=== PATIENT | male | born 1945 | race Caucasian/White ===

== ENCOUNTER 2017-06-15 10:07 | Day surgery (SDC) | payer MEDICARE, OTHER ==
[2017-06-15] MEDS ORDERED: LACTATED RINGERS 1,000 ML IV ONE (10:30)
[2017-06-15] MEDS ORDERED: MIDAZOLAM 2 MG/2 ML VIAL IVP ONE (11:42)
[2017-06-15] MEDS ORDERED: fentaNYL 100 MCG/2 ML VIAL IVP ONE (11:42)
[2017-06-15] MEDS ORDERED: GLUCAGON 1 MG/ML VIAL IM ONE (11:42)
[2017-06-15 12:52] VITALS: BP 129/82
== END 2017-06-15 10:08 | disposition home or self-care (01) ==
LOC: SDS 10:07
PROVIDERS: ATTEND Surgery
PROC: 0DBK8ZX Excision of Ascending Colon, Via Natural or Artificial Opening Endoscopic, Diagnostic (ICD-10-PCS; 2017-06-15)
PROC: 0DBN8ZX Excision of Sigmoid Colon, Via Natural or Artificial Opening Endoscopic, Diagnostic (ICD-10-PCS; principal; 2017-06-15 11:15)
DX: Z12.11 Encounter for screening for malignant neoplasm of colon (principal); D12.2 Benign neoplasm of ascending colon; D12.0 Benign neoplasm of cecum; D12.5 Benign neoplasm of sigmoid colon; Z79.82 Long term (current) use of aspirin; Z87.891 Personal history of nicotine dependence
CPT/HCPCS: 45380; 45385; J7120

== ENCOUNTER 2020-09-13 10:47 | Day surgery (SDC) | payer MEDICARE ==
[2020-09-13] MEDS ORDERED: LACTATED RINGERS 1,000 ML IV ONE ×2 (11:02→12:32)
[2020-09-13] MEDS ORDERED: MIDAZOLAM 2 MG/2 ML VIAL ONE ×2 (11:43→11:45)
[2020-09-13] MEDS ORDERED: fentaNYL 250 MCG/5 ML VIAL ONE (11:43)
[2020-09-13] MEDS ORDERED: SIMETHICONE 40 MG/0.6 ML 30 ML BOTTLE PO ONE (12:04)
[2020-09-13 12:46] VITALS: BP 112/67
== END 2020-09-13 10:48 | disposition home or self-care (01) ==
LOC: SDS 10:47
PROVIDERS: ATTEND Surgery
PROC: 0DBP8ZZ Excision of Rectum, Via Natural or Artificial Opening Endoscopic (ICD-10-PCS; principal; 2020-09-13 12:00)
DX: Z12.11 Encounter for screening for malignant neoplasm of colon (principal); D12.8 Benign neoplasm of rectum; Z87.891 Personal history of nicotine dependence
CPT/HCPCS: 45380; A9270; J3010; J7120

== ENCOUNTER 2021-03-19 08:00 | Outpatient (CLI) | payer MEDICARE | END 2021-03-19 23:59 | disposition home or self-care (01) | LOC: LAB.N 08:00 | PROVIDERS: ATTEND Physician Assistant Medical | DX: R33.8 Other retention of urine (principal) | CPT/HCPCS: 87086 ==

== ENCOUNTER 2022-01-13 07:17 | Outpatient (CLI) | payer MEDICARE ==
[2022-01-13 11:49] LABS: BASOPHILS % (AUTO) 0.1 %; HCT - HEMATOCRIT 44.2 % (42.0-52.0); HGB - HEMOGLOBIN 13.9 g/dL (14.0-18.0); LYMPHOCYTES % (AUTO) 94.5 %; MEAN CORPUSCULAR HEMOGLOBIN 30.3 pg (27.0-31.0); MEAN CORPUSCULAR HGB CONC 31.4 g/dL (32.0-36.0); MEAN CORPUSCULAR VOLUME 96.3 fL (80.0-94.0); MEAN PLATELET VOLUME 11.3 fL (7.4-11.4); MONOCYTES % (AUTO) 1.6 %; NEUTROPHILS % (AUTO) 3.7 %; PLT - PLATELET COUNT 120 10^3/uL (130-450); RED BLOOD COUNT 4.59 10^6/uL (4.70-6.10); RED CELL DISTRIBUTION WIDTH 14.4 % (12.0-15.0)
[2022-01-13 12:19] LABS: WHITE BLOOD COUNT 85.1 x10^3/uL (4.8-10.8)
[2022-01-13 12:20] LABS: ABNORMAL LYMPHS % (MANUAL) 0 %; BAND NEUTROPHILS % (MANUAL) 0 %
[2022-01-13 12:21] LABS: SLIDE SENT FOR PATH REVIEW? Indicated
[2022-01-13 12:30] LABS: LYMPHOCYTES # (MANUAL) 79.1 10^3/uL (1.5-3.5); LYMPHOCYTES % (MANUAL) 93 %; MONOCYTES # (MANUAL) 1.7 10^3/uL (0.0-1.0); NEUTROPHILS # (MANUAL) 2.6 10^3/uL (1.5-6.6)
[2022-01-13 12:32] LABS: DIFFERENTIAL COMMENT MANUAL DIFFERENTIAL; PLATELET ESTIMATE, MANUAL DECREASED (<130,000) (NORMAL); PLATELET MORPHOLOGY NORMAL APPEARANCE (NORMAL); RBC MORPHOLOGY (MULTIPLE) NORMAL APPEARANCE (NORMAL); WBC MORPHOLOGY (MULTIPLE) 2+ SMUDGE CELLS (NORMAL)
[2022-01-13 12:35] LABS: BLAST CELLS % (MANUAL) 2 %
[2022-01-13 12:48] LABS: ALBUMIN 4.3 g/dL (3.2-5.5); ALKALINE PHOSPHATASE 40 IU/L (42-121); ALT ALANINE AMINOTRANSFERASE 20 IU/L (10-60); AST ASPARTATE AMINOTRANSFERASE 23 IU/L (10-42); BILIRUBIN,TOTAL 0.7 mg/dL (0.2-1.0); BUN - BLOOD UREA NITROGEN 21 mg/dL (6-20); CALCIUM 9.2 mg/dL (8.5-10.3); CARBON DIOXIDE - CO2 30 mmol/L (21-32); CHLORIDE 102 mmol/L (101-111); CHOL/HDL RATIO 3.2 (<5.0); CHOLESTEROL 236 mg/dL; CREATININE 0.9 mg/dL (0.6-1.2); GFR - MDRD 82 (>89); GLUCOSE 87 mg/dL (70-100); HDL CHOLESTEROL 73 mg/dL; LDL CHOLESTEROL,CALCULATED 151 mg/dL; LDL/HDL RATIO 2.1 (<3.6); POTASSIUM 4.1 mmol/L (3.5-5.0); SODIUM 138 mmol/L (135-145); TOTAL PROTEIN 6.5 g/dL (6.7-8.2); TRIGLYCERIDES 58 mg/dL; VLDL CHOLESTEROL 12 mg/dL
[2022-01-13 12:59] LABS: THYROID STIMULATING HORMONE 2.06 uIU/mL (0.34-5.60)
== END 2022-01-13 07:18 | disposition home or self-care (01) ==
LOC: LAB.N 07:17
PROVIDERS: ATTEND Family Medicine
DX: L21.9 Seborrheic dermatitis, unspecified (principal); L57.0 Actinic keratosis; N52.9 Male erectile dysfunction, unspecified; Z12.5 Encounter for screening for malignant neoplasm of prostate
CPT/HCPCS: 36415; 80053; 80061; 84443; 85025; G0103; 83721; 84153

== ENCOUNTER 2023-01-21 10:10 | Day surgery (SDC) | payer MEDICARE ==
[~2023-01-21 10:10] MED LIST: BUPIVACAINE 0.25% PF 30 ML VIAL ONE; LIDOCAINE-MPF 1% 30 ML VIAL ONE; ceFAZolin 2 GM VIAL ONE
[2023-01-21] MEDS ORDERED: LACTATED RINGERS 1,000 ML IV ONE ×2 (10:37→13:30)
--- NOTE | 2023-01-21 10:58 | ANESTHESIA ---
Pre-Anesthesia VS, & Labs - Diagnosis right inguinal hernia - Procedure right inguinal hernia repair Height: 5 ft 10 in Weight (kg): 64.9 kg Body Mass Index: 20.5 BMI Classification: Normal - NPO >8 hours Home Medications and Allergies Alfuzosin HCl [Alfuzosin HCl ER] 10 mg PO ONCE 01/16/22 Allergies/Adverse Reactions: Allergies Allergy/AdvReac Type Severity Reaction Status Date / Time No Known Drug Allergies Allergy Verified 09/13/20 11:11 Anes History & Medical History - Anesthetic History Anesthesia Complications: reports: No previous complications - Medical History Cardiovascular: reports: None Pulmonary: reports: None Gastrointestinal: reports: None Urinary: reports: Benign prostate hypertrophy Musculoskeletal: reports: None Endocrine/Autoimmune: reports: None Skin: reports: None Smoking Status: Former smoker Psychosocial: reports: Alcohol (beer occassionally) - Surgical History General: reports: Colonoscopy Eyes Ears Nose Throat (EENT): reports: Tonsil/Adenoidectomy Orthopedic: reports: Spine surgery Exam General: Alert, Oriented x3 Dental: WNL Mouth Opening: Greater than 4 Fingerbreadths Neck Mobility: Normal Mallampati classification: II Thyromental Distance: greater than 6 cm Respiratory: Lungs clear Cardiovascular: Regular rate Plan Anesthesia Type: MAC Consent for Procedure(s) Verified and Reviewed: Yes Code Status: Attempt Resuscitation ASA classification: 2-Mild systemic disease Is this case an emergency?: No
[2023-01-21] MEDS ORDERED: fentaNYL 100 MCG/2 ML VIAL ONE (11:46)
[2023-01-21] MEDS ORDERED: PROPOFOL 500 MG/50 ML 500 MG/50 ML VIAL ONE (11:46)
[2023-01-21] MEDS ORDERED: BUPIVACAINE 0.25% PF 30 ML VIAL SUBQ ONE (12:00)
[2023-01-21] MEDS ORDERED: LIDOCAINE-MPF 1% 30 ML VIAL SUBQ ONE (12:00)
[2023-01-21] MEDS ORDERED: ONDANSETRON 4 MG/2 ML VIAL ONE (12:33)
[2023-01-21] MEDS ORDERED: PROPOFOL 200 MG/20 ML VIAL IVP ONE (13:07)
[2023-01-21] MEDS ORDERED: HYDROcod/ACETAM 5/325 MG TABLET PO PRN (13:39)
--- NOTE | 2023-01-21 13:40 | OPERATIVE REPORT ---
Operative Report - General Procedure Date: 01/21/23 Planned Procedure: open right inguinal hernia repair with mesh Pre-Op Diagnosis: right inguinal hernia Procedure Performed: open right inguinal hernia repair with mesh Post Op Diagnosis: indirect and direct - Procedure Note Primary Surgeon: dayna lam Anesthesia Technique: Local, MAC Pathology: not sent Estimated Blood Loss (mL): 2 Drain/Tube Type: Other (none) Indications: painful hernia Findings: as above Complications: none - Other Other Information/Narrative: Patient was properly identified brought to the operating room and placed in supine position. Sequential compression devices were placed. Laryngeal mask anesthesia and sedation was given. He was prepped and draped in a sterile fashion and given preoperative antibiotics. Local anesthetic was given throughout the procedure. A 5 cm incision was made in the direction of Marc's lines just cephalad of the pubic tubercle. Dissection proceeded with cutting current cautery. The superficial epigastric vein was identified clamped divided and tied with 3-0 Vicryl. Dissection proceeded down to the aponeurosis. The aponeurosis was opened in the direction of its fibers and extended to the external ring. Cord structures were mobilized and brought up. The nerves were carefully protected and preserved. Cord structures were mobilized and brought up. An indirect inguinal hernia was present. The hernia sac was mobilized off the cord structures and suture ligated with 2 O silk and further reduced. Preperitoneal fat was removed. The base was tied with 2 O vicryl. Polypropylene mesh was cut to size and with tails. The mesh was secured with multiple interrupted 0 Ethibond sutures. Sutures were placed along the pubic tu bercle, Aniket's ligament area and along the shelving border of Poupart's ligament. Sutures were placed medially along the abdominal wall musculature and internal oblique. The medial tail of the mesh was secured to the shelving border of Poupart's ligament with 3 interrupted 0 ethibond sutures recreating the internal ring of appropriate size. Aponeurosis was closed with a running 2-0 Vicryl suture. Scrarpas was closed with interrupted 3-0 Vicryl suture. Buried interrupted subdermal 3-0 Vicryl sutures were then placed. And was closed with a running 4-0 Monocryl subcuticular suture. Dressing was applied. Patient was awakened and brought to recovery in good condition.
[2023-01-21] MEDS ORDERED: NALOXONE 0.4 MG/ML VIAL IVP PRN (13:44)
[2023-01-21] MEDS ORDERED: ATROPINE ABBOJECT 1 MG/10 ML SYRINGE IVP PRN (13:44)
[2023-01-21] MEDS ORDERED: ONDANSETRON 4 MG/2 ML VIAL IVP PRN (13:44)
[2023-01-21] MEDS ORDERED: ePHEDrine 50 MG/ML VIAL IVP PRN (13:44)
[2023-01-21] MEDS ORDERED: HYDROmorphone 0.5 MG/0.5 ML SYRINGE IVP PRN (13:44)
[2023-01-21] MEDS ORDERED: fentaNYL 100 MCG/2 ML VIAL IVP PRN (13:44)
[2023-01-21] MEDS ORDERED: LACTATED RINGERS 1,000 ML IV SCH (14:00)
[2023-01-21 15:06] VITALS: BP 129/82
--- NOTE | 2023-01-21 15:32 | ANESTHESIA POST OP EVALUATION ---
Anesthesia Post Eval - Post Anesthesia Eval Vitals: Last Vital Signs Temp 36.6 C 01/21/23 14:45 Pulse 60 01/21/23 14:45 Resp 16 01/21/23 14:45 BP 129/82 H 01/21/23 14:45 Pulse Ox 96 01/21/23 14:45 O2 Flow Rate CV Function Including HR & BP: Stable Pain Control: Satisfactory Nausea & Vomiting: Negative Mental Status: Baseline Respiratory Status: Airway Patent Hydration Status: Satisfactory Anesthesia Complications: None
== END 2023-01-21 10:11 | disposition home or self-care (01) ==
LOC: SDS 10:10
PROVIDERS: ATTEND Surgery
DX: K40.90 Unilateral inguinal hernia, without obstruction or gangrene, not specified as recurrent (principal); Z87.891 Personal history of nicotine dependence
CPT/HCPCS: 49505; C1781; J7120

== ENCOUNTER 2023-03-13 09:09 | Outpatient (CLI) | payer MEDICARE ==
[2023-03-13 19:31] LABS: CHOL/HDL RATIO 3.5 (<5.0); CHOLESTEROL 256 mg/dL; HDL CHOLESTEROL 74 mg/dL; LDL CHOLESTEROL,CALCULATED 160 mg/dL; LDL/HDL RATIO 2.2 (<3.6); TRIGLYCERIDES 112 mg/dL (48-352); VLDL CHOLESTEROL 22 mg/dL
[2023-03-13 19:34] LABS: PSA TOTAL 12.416 ng/mL (0.000-2.000)
== END 2023-03-13 09:10 | disposition home or self-care (01) ==
LOC: LAB.N 09:09
PROVIDERS: ATTEND Family Medicine
DX: D72.820 Lymphocytosis (symptomatic) (principal); E78.5 Hyperlipidemia, unspecified; Z12.5 Encounter for screening for malignant neoplasm of prostate
CPT/HCPCS: 36415; 80061; 83721; 84153; 84154; 84443

== ENCOUNTER 2023-04-29 03:55 | Emergency (ER) | payer MEDICARE ==
[2023-04-29 04:17] VITALS: BP 145/86
[2023-04-29 04:25] LABS: BILIRUBIN,URINE NEGATIVE (NEGATIVE); GLUCOSE, URINE (UA) NEGATIVE (NEGATIVE); KETONES,URINE (UA) NEGATIVE (NEGATIVE); LEUKOCYTE ESTERASE, URINE NEGATIVE (NEGATIVE); NITRITE,URINE NEGATIVE (NEGATIVE); OCCULT BLOOD,URINE SMALL (NEGATIVE); PH,URINE 5.5 PH (5.0-7.5); PROTEIN,URINE NEGATIVE (NEGATIVE); UROBILINOGEN,URINE 0.2 (NORMAL) E.U./dL (NORMAL)
[2023-04-29 04:33] LABS: BACTERIA,URINE None Seen /HPF (None Seen); CLARITY,URINE CLEAR (CLEAR); RBC,URINE 0-5 /HPF (0-5); SQUAMOUS EPITHELIAL CELL,UR NONE SEEN (<= Few); WBC,URINE 0-3 /HPF (0-3)
--- NOTE | 2023-04-29 04:38 | ED Physician Documentation ---
PD HPI MALE - Stated complaint Stated Complaint: MALE (CAN'T URINATE) - Chief complaint Chief Complaint: General - History obtained from History obtained from: Patient - Additional information Additional information: HPI from patient. Patient c/o increasing urge to urinate despite not being able to have any UO, associated with gradually worsening suprapubic fullness, pain. This started last night and is steadily progressive. He had urinary retention once before requiring flowers catheter a few years ago but has not had recurrence until last night. He takes alfuzosin for BPH. Denies fever. Review of Systems Constitutional: denies: Fever GI: reports: Abdominal Pain (suprapubic) : reports: Unable to Void PD PAST MEDICAL HISTORY - Past Medical History Cardiovascular: None Respiratory: None Endocrine/Autoimmune: None GI: None : Benign prostate hypertrophy HEENT: Chronic vision loss Psych: None Musculoskeletal: None Derm: None - Past Surgical History General: Colonoscopy Ortho: Spine surgery HEENT: Tonsil/Adenoidectomy - Present Medications Home Medications: Ambulatory Orders Medication Instructions Recorded Confirmed Alfuzosin HCl [Alfuzosin HCl ER] 10 mg PO ONCE 01/16/22 03/26/23 HYDROcod/ACETAM 5/325 [[place] 5/325] 1 each PO Q6H PRN #25 tablet 01/21/23 03/26/23 - Allergies Allergies/Adverse Reactions: Allergies Allergy/AdvReac Type Severity Reaction Status Date / Time No Known Drug Allergies Allergy Verified 09/13/20 11:11 - Social History Smoking Status: Former smoker PD ED PE NORMAL - Vitals Vital signs reviewed: Yes - General General: Alert and oriented X 3, Well developed/nourished, Other (appears to be in mild-moderate painful discomfort) - Respiratory Respiratory: No respiratory distress, Clear bilaterally - Abdomen Abdomen: Soft, Non tender, Other (suprapubic tenderness, fullness/distention) - Back Back: No CVA TTP Results - Vitals Vitals: Vital Signs - 24 hr 04/29/23 04/29/23 03:59 05:12 Temperature 37 C Heart Rate 89 80 Respiratory 20 16 Rate Blood Pressure 145/86 H O2 Saturation 100 99 Oxygen O2 Source Room air - Labs Labs: Laboratory Tests 04/29/23 04:10 Urine Color YELLOW Urine Clarity CLEAR Urine pH 5.5 Ur Specific [place] 1.010 Urine Protein NEGATIVE Urine Glucose (UA) NEGATIVE Urine Ketones NEGATIVE Urine Occult Blood SMALL H Urine Nitrite NEGATIVE Urine Bilirubin NEGATIVE Urine Urobilinogen 0.2 (NORMAL) Ur Leukocyte Esterase NEGATIVE Urine RBC 0-5 Urine WBC 0-3 Ur Squamous Epith Cells NONE SEEN Urine Bacteria None Seen Urine Culture Comments NOT INDICATED PD Medical Decision Making - ED course Complexity details: reviewed results, re-evaluated patient, considered differential, d/w patient ED course: ED RN performed bedside bladder scan, over 900cc on this study. ED RN then placed flowers catheter, over 800 cc clear, yellow urine output with complete resolution of patient's symptoms. Patient advised to contact his urologist in the morning to arrange for follow up appointment, ideally within 5-7 days if can be arranged. He asks for information regarding urology practice on [facility], as his urologist no longer is making once-weekly visits to the clinic on [facility]. I provided Dr. Lucio's information on patient's discharge sheets, although I also discussed with him that he would do well to make sure said practice works with patient's insurance. Return precautions discussed (including fever, failure of catheter (leaking, not draining with urinary retention recurrence)) Departure - Departure Disposition: Home, Self Care Clinical Impression: Urinary retention Condition: Good Instructions: ED Catheter Care Flowers, ED Retention Urinary Male Follow-Up: Abdiel Lucio MD [Provider Admit Priv/Credential] - Comments: You need to follow-up with urology within the next several days. I have provided the contact information for the local urologist (Dr. Lucio) within these discharge instructions. Discharge Date/Time: 04/29/23 05:12
[2023-04-29 05:17] VITALS: O2SAT 99
== END 2023-04-29 05:12 | disposition home or self-care (01) ==
LOC: ED 03:55
DX: R33.9 Retention of urine, unspecified (principal)
CPT/HCPCS: 51702; 51798; 81001; 87086; 99282; 99283

== ENCOUNTER 2023-05-18 07:04 | Outpatient (CLI) | payer MEDICARE | END 2023-05-18 07:05 | disposition home or self-care (01) | LOC: LAB.N 07:04 | PROVIDERS: ATTEND Urology | DX: R97.20 Elevated prostate specific antigen [PSA] (principal) | CPT/HCPCS: 36415; 84153 ==

== ENCOUNTER 2023-06-11 06:22 | Outpatient (CLI) | payer MEDICARE ==
[2023-06-11 07:21] LABS: CREATININE 1.1 mg/dL (0.6-1.3)
[2023-06-11] MEDS ORDERED: GADOTERATE MEGLUMINE 10 MMOL/20 ML VIAL ONE (07:21)
[2023-06-11] MEDS ORDERED: GADOTERATE MEGLUMINE 10 MMOL/20 ML VIAL IVP ONE (08:20)
--- NOTE | 2023-06-11 10:43 | MRI Report ---
PROCEDURE: PELVIS W/WO INDICATIONS: ELEVATED PSA CONTRAST: CLARISCAN 13.2 TECHNIQUE: Coronal ultra fast SE, axial T1 FSE with fat saturation, 3-plane nonbreath-hold T2 FSE. After the ad ministration of contrast, dynamic axial, delayed axial and coronal ultra fast GE or 2-D spoiled GE wi th fat saturation through the pelvis. Optional diffusion weighted imaging and ADC may be performed. COMPARISON: None. FINDINGS: Image quality: Diffusion weighted and dynamic contrast enhanced images are diagnostic. Prostate: Gland size is 5.2 x 5.3 x 5 cm. cm; ellipsoid gland volume is 72 mL. Transitional zone heterogenous nodules are present, either well encapsulated or mostly encapsulated, compatible with PI-RADS 1 or 2 likely BPH nodules. PI-RADS 2. The peripheral zone is compressed. A lenticular region of hypointense T2 signal measuring 1.4 x 1.0 x 1.2 cm (6/10, 5/13) is seen in the left anterior transitional zone near the fibromuscular stroma. This is associated with diffusion res triction that do not appears similar to the other BPH nodules (8/63). T2 score is 3. DWI score is 4. DCE positive. PI RADS 4. The seminal vesicles are clear. No clear extracapsular disease. Genitourinary system: Underdistended bladder wall thickening, possibly related to chronic obstructio n. Bowel and peritoneum: Colonic diverticular disease. No bowel obstruction. There is a small amount of free fluid, of uncertain etiology. Nodes and vessels: No pathologic lymph nodes identified. No aneurysmal vessel identified. Soft tissues: Unremarkable Bones: No acute or suspicious osseous finding. IMPRESSION: Predominant abnormality in the prostate is BPH and prostatomegaly. There is a PI-RADS 4 lesion lesion in the left anterior transitional zone near the fibromuscular stroma in the mid gland. Reviewed by: Jesus Veliz MD on 06/11/2023 10:42 AM PST Approved by: Jesus Veliz MD on 06/11/2023 10:42 AM PST Station ID: [id number]
== END 2023-06-11 06:23 | disposition home or self-care (01) ==
LOC: LAB 06:22
PROVIDERS: ATTEND Urology
DX: R97.20 Elevated prostate specific antigen [PSA] (principal); N40.0 Benign prostatic hyperplasia without lower urinary tract symptoms; N42.89 Other specified disorders of prostate
CPT/HCPCS: 36415; 72197; 82565; A9575

== ENCOUNTER 2024-03-31 07:07 | Outpatient (CLI) | payer MEDICARE | END 2024-03-31 07:08 | disposition home or self-care (01) | LOC: LAB 07:07 | PROVIDERS: ATTEND Urology | DX: C61 Malignant neoplasm of prostate (principal) | CPT/HCPCS: 36415; 84153 ==